=== PATIENT | female | born 1960 | race Asian ===

== ENCOUNTER 2023-12-24 18:52 | Inpatient (IN) | payer MEDICARE, MEDICAID ==
[~2023-12-24] VITALS: Ht 154.9 cm; Wt 111.1 kg
[2023-12-24] MEDS ORDERED: MULT-248 PO (19:28)
[2023-12-24] MEDS ORDERED: CLON0.1T2 PO (19:28)
[2023-12-24] MEDS ORDERED: BISA-151 PO (19:28)
[2023-12-24] MEDS ORDERED: DEXT38GE12 PO (19:28)
[2023-12-24] MEDS ORDERED: METF-1211 PO ×2 (19:28)
[2023-12-24] MEDS ORDERED: MAGN400T57 PO (19:28)
[2023-12-24] MEDS ORDERED: IPRA3AMP24 NEB (19:28)
[2023-12-24] MEDS ORDERED: FERR325T27 PO (19:28)
[2023-12-24] MEDS ORDERED: METO50 PO (19:28)
[2023-12-24] MEDS ORDERED: MAGN-169 PO (19:28)
[2023-12-24] MEDS ORDERED: NA P133E4 PR (19:28)
[2023-12-24] MEDS ORDERED: SOLI5 PO (19:28)
[2023-12-24] MEDS ORDERED: MENT222L13 TP (19:28)
[2023-12-24] MEDS ORDERED: CALC-789 PO (19:28)
[2023-12-24] MEDS ORDERED: FOLI0.4T6 PO (19:28)
[2023-12-24] MEDS ORDERED: DIVA125C20 PO (19:28)
[2023-12-24] MEDS ORDERED: ACET-2247 PO (19:28)
[2023-12-24] MEDS ORDERED: MELA3TAB89 PO (19:28)
[2023-12-24] MEDS ORDERED: AMMO225L14 TP (19:28)
[2023-12-24 20:53] LABS: BASOPHILS % (AUTO) 0.7 % (0.0-2.0); HEMATOCRIT 37.6 % (36-46); HEMOGLOBIN 12.3 g/dL (12.0-16.0); LYMPHOCYTES # (AUTO) 2.1 K/uL (1.0-4.8); LYMPHOCYTES % (AUTO) 32.6 % (22.0-44.0); MEAN CORPUSCULAR HEMOGLOBIN 28.2 pg (26.0-34.0); MEAN CORPUSCULAR HGB CONC 32.8 G/dL (31.0-37.0); MEAN CORPUSCULAR VOLUME 86 fL (80-100); MONOCYTES # (AUTO) 0.8 K/uL (0.1-1.0); NEUTROPHILS # (AUTO) 3.2 K/uL (1.8-7.7); NEUTROPHILS % (AUTO) 50.7 % (40.0-70.0); PLATELET COUNT (AUTO) 212 K/uL (150-450); RED BLOOD CELL COUNT(AUTO) 4.37 MIL/uL (4.00-5.20); RED CELL DISTRIBUTION WIDTH 15.4 % (11.5-14.5); WHITE BLOOD COUNT (AUTO) 6.4 K/uL (4.5-11.0)
[2023-12-24 21:12] LABS: ALCOHOL, BLOOD (SERUM) < 3 mg/dL (0-10)
[2023-12-24 21:49] LABS: ANION GAP 10 mmol/L (8-16); CARBON DIOXIDE 27 mmol/L (22-29); CHLORIDE 103 mmol/L (98-107); CREATININE 0.67 mg/dL (0.60-1.30); GLOMERULAR FILTR. RATE CALC > 60 mL/min (>60); GLUCOSE,RANDOM 93 mg/dL (70-110); POTASSIUM 4.7 mmol/L (3.5-5.1); SODIUM SERUM 140 mmol/L (136-145); UREA NITROGEN, BLOOD 14 mg/dL (7-18)
[2023-12-24 23:01] LABS: COVID AG,FIA SOURCE NASAL SWAB
[2023-12-24 23:28] LABS: SARS-COV2 (COVID) ANTIGEN,FIA Negative (Negative)
[2023-12-25] MEDS ORDERED: LORazepam 1 MG TABLET PO PRN (01:45)
[2023-12-25] MEDS ORDERED: MAGNESIUM HYDROXIDE SUSPENSION 30 ML UDCUP PO PRN (01:45)
[2023-12-25] MEDS ORDERED: ACETAMINOPHEN 325 MG TABLET PO PRN (01:45)
[2023-12-25] MEDS ORDERED: GuaiFENesin/D-METHORPHAN [SUGAR-FREE] 200-20MG/10 ML SYRUP UDCUP PO PRN (01:45)
[2023-12-25] MEDS ORDERED: QUEtiapine FUMARATE 100 MG TABLET PO PRN (01:45)
[2023-12-25] MEDS ORDERED: ZOLPIDEM TARTRATE 10 MG TABLET PO PRN (01:45)
[2023-12-25] MEDS ORDERED: MAG HYDROX/ALUMINUM HYD/SIMETH ES 30 ML SUSPENSION UDCUP PO PRN (01:45)
[2023-12-25] MEDS ORDERED: PROMETHAZINE HCL 25 MG TABLET PO PRN (01:45)
[2023-12-25] MEDS ORDERED: HydrOXYzine PAMOATE 50 MG CAPSULE PO PRN (01:45)
[2023-12-25] MEDS ORDERED: LOPERAMIDE HCL 2 MG CAPSULE PO PRN (01:45)
[2023-12-25 02:56] LABS: AMPHET/METH SCREEN,URINE NEGATIVE (NEGATIVE); BARBITURATE SCREEN, URINE NEGATIVE (NEGATIVE); BENZODIAZEPINES SCREEN,URINE NEGATIVE (NEGATIVE); CANNABINOID SCREEN,URINE NEGATIVE (NEGATIVE); COCAINE SCREEN,URINE NEGATIVE (NEGATIVE); METHADONE SCREEN, URINE NEGATIVE (NEGATIVE); OPIATE SCREEN,URINE NEGATIVE (NEGATIVE); PHENCYCLIDINE SCREEN,URINE NEGATIVE (NEGATIVE)
[2023-12-25 02:57] LABS: ALCOHOL, URINE DRUG SCREEN NEGATIVE (NEGATIVE)
[2023-12-25 04:27] VITALS: O2SAT 99
[2023-12-25 06:11] LABS: GLUCOMETER DEV NAME(LOC) BV3S.; GLUCOSE,POINT OF CARE 84 MG/DL (70-110)
[2023-12-25 07:19] VITALS: BP 151/95; PULSE 55; RESP 16; TEMP 98.5; O2SAT 96
[2023-12-25] MEDS ORDERED: GLUCAGON,HUMAN RECOMBINANT 1 MG VIAL IM PRN (08:00)
[2023-12-25] MEDS ORDERED: INSULIN LISPRO 100 UNITS/ML SQ PRN (08:00)
[2023-12-25] MEDS ORDERED: ALBUTEROL SULFATE HFA 90 MCG/PUFF 8 GM INHALER IH PRN (08:00)
[2023-12-25 08:39] VITALS: RESP 16
[2023-12-25] MEDS: MULTIVITAMINS WITH MINERALS, THERAPEUTIC TABLET PO SCH (08:45)
[2023-12-25] MEDS: FOLIC ACID 1 MG TABLET PO SCH (08:45)
[2023-12-25] MEDS: THIAMINE 100 MG TABLET PO SCH (08:45)
[2023-12-25] MEDS: TUBERCULIN, PURIFIED PROTEIN DERIVATIVE 5 TU/0.1 ML SYRINGE ID ONE (09:00)
[2023-12-25] MEDS: METOPROLOL TARTRATE 50 MG TABLET PO SCH (09:00)
[2023-12-25] MEDS: SOLIFENACIN SUCCINATE 5 MG TABLET PO SCH (09:00)
[2023-12-25 09:17] LABS: HEMOGLOBIN A1C 5.2 % (3.8-5.6)
[2023-12-25 09:25] LABS: CHOL/HDL RATIO 1.8 (3.9-5.7); FREE T4 (FREE THYROXINE) 1.04 ng/dL (0.76-1.46); THYROID STIMULATING HORMONE 1.85 uIU/mL (0.36-3.74)
[2023-12-25] MEDS: DIVALPROEX SODIUM 125 MG DR TABLET PO SCH (16:28)
[2023-12-25 17:05] LABS: GLUCOMETER DEV NAME(LOC) BV3S.; GLUCOSE,POINT OF CARE 104 MG/DL (70-110)
[2023-12-25] MEDS: BREXPIPRAZOLE 0.25 MG TABLET PO SCH (20:54)
[2023-12-25] MEDS: MELATONIN 5 MG TABLET PO SCH (20:54)
[2023-12-25 22:51] VITALS: BP 131/69; PULSE 60; RESP 18; TEMP 97.5; O2SAT 98
[2023-12-26] MEDS: MetFORMIN HCL 500 MG TABLET PO SCH (07:05)
[2023-12-26 07:10] LABS: GLUCOMETER DEV NAME(LOC) BV2X.3; GLUCOSE,POINT OF CARE 98 MG/DL (70-110)
[2023-12-26 08:20] VITALS: BP 140/82; PULSE 80; RESP 18; TEMP 97.6; O2SAT 98
[2023-12-26 18:17] LABS: GLUCOMETER DEV NAME(LOC) BV2X.3; GLUCOSE,POINT OF CARE 128 MG/DL (70-110)
[2023-12-26 18:17] LABS: GLUCOMETER DEV NAME(LOC) BV2X.3; GLUCOSE,POINT OF CARE 132 MG/DL (70-110)
[2023-12-26 20:37] VITALS: BP 140/82; PULSE 80; RESP 18; TEMP 97.6; O2SAT 100
[2023-12-26] MEDS: DULoxetine HCL 20 MG CAPSULE PO SCH (20:55)
[2023-12-27 06:11] LABS: GLUCOMETER DEV NAME(LOC) BV2X.3; GLUCOSE,POINT OF CARE 109 MG/DL (70-110)
[2023-12-27] MEDS: MetFORMIN HCL 500 MG TABLET PO SCH (06:47)
[2023-12-27] MEDS: DIVALPROEX SODIUM 125 MG DR TABLET PO SCH (08:10)
[2023-12-27] MEDS: PNEUMOCOCCAL VACCINE POLYVALENT 0.5 ML SYRINGE [PPSV23] IM. ONE (08:11)
[2023-12-27 08:39] VITALS: BP 138/77; PULSE 87; RESP 17; TEMP 97.1; O2SAT 96
[2023-12-27 16:42] LABS: GLUCOMETER DEV NAME(LOC) BV2X.3; GLUCOSE,POINT OF CARE 117 MG/DL (70-110)
[2023-12-27 20:31] LABS: GLUCOMETER DEV NAME(LOC) BV2X.3; GLUCOSE,POINT OF CARE 146 MG/DL (70-110)
[2023-12-27] MEDS ORDERED: DULO20CA71 PO (22:36)
[2023-12-27] MEDS ORDERED: DIVA125T2 PO (22:36)
[2023-12-27] MEDS ORDERED: BREX0.25 PO (22:36)
[2023-12-27] MEDS ORDERED: MELA5TAB40 PO (22:36)
[2023-12-27 23:02] VITALS: BP 131/68; PULSE 66; RESP 18; TEMP 97.6
[2023-12-28 06:46] LABS: GLUCOMETER DEV NAME(LOC) BV2X.3; GLUCOSE,POINT OF CARE 108 MG/DL (70-110)
[2023-12-28 08:08] VITALS: BP 169/89; PULSE 76; RESP 18; TEMP 97.6; O2SAT 97
[2023-12-28] MEDS: METOPROLOL TARTRATE 25 MG TABLET PO SCH (09:34)
[2023-12-28 18:50] LABS: GLUCOMETER DEV NAME(LOC) BV2X.3; GLUCOSE,POINT OF CARE 120 MG/DL (70-110)
[2024-01-04] MEDS ORDERED: FOLIC ACID 0.4 MG TABLET PO SCH (09:00)
== END 2023-12-28 20:15 | DRG 885 ==
LOC: EMS 18:52 → B3A 12-25 05:10 → B2X 12-25 19:04
PROVIDERS: ADMIT Psychiatry & Neurology Psychiatry; ATTEND Psychiatry & Neurology Psychiatry
PROC: GZHZZZZ Group Psychotherapy (ICD-10-PCS; principal; 2023-12-25)
PROC: GZ58ZZZ Individual Psychotherapy, Cognitive-Behavioral (ICD-10-PCS; 2023-12-25)
PROC: GZ56ZZZ Individual Psychotherapy, Supportive (ICD-10-PCS; 2023-12-25)
DX: F20.9 Schizophrenia, unspecified (principal); Z68.42 Body mass index [BMI] 45.0-49.9, adult; F17.200 Nicotine dependence, unspecified, uncomplicated; I10 Essential (primary) hypertension; Z20.822 Contact with and (suspected) exposure to COVID-19; N28.9 Disorder of kidney and ureter, unspecified; N32.81 Overactive bladder; E11.9 Type 2 diabetes mellitus without complications; J44.9 Chronic obstructive pulmonary disease, unspecified; G47.00 Insomnia, unspecified; E66.9 Obesity, unspecified; Z55.9 Problems related to education and literacy, unspecified; Z59.9 Problem related to housing and economic circumstances, unspecified; Z63.9 Problem related to primary support group, unspecified; Z65.3 Problems related to other legal circumstances; Z88.8 Allergy status to other drugs, medicaments and biological substances; F31.9 Bipolar disorder, unspecified
CPT/HCPCS: 80048; 80061; 80164; 80307; 82962; 83036; 84439; 84443; 85025; 86592; 87081; 87481; 99285; G0480